=== PATIENT | female | born 1950 | race Caucasian/White ===

== ENCOUNTER 2016-09-13 21:09 | Emergency (ER) | payer BC, OTHER ==
--- NOTE | 2016-09-13 21:26 | EDM.PDOC ---
ED HPI GENERAL MEDICAL PROBLEM - General Chief Complaint: Upper Extremity Injury/Pain Stated Complaint: PAIN LT WRIST Time Seen by Provider: 09/13/16 21:22 - History of Present Illness INITIAL COMMENTS - FREE TEXT/NARRATIVE: HISTORY AND PHYSICAL: History of present illness: The patient is a 70-year-old female with a history of hypothyroidism and who is left-hand dominant and presents with complaints of left wrist pain after she slipped and fell on the arm and the wrist. The patient denies that she passed out or blacked out and has no head neck or back pain and has no proximal forearm elbow or shoulder pain on the left side. All other extremities are without pain. She put ice on the area and took 600 mg of Motrin and 1 g of Tylenol before coming to the ER. Patient states that prior to this fall she was in good state of health and had no systemic complaints. Patient has no neurosensory changes that she states in her hand distally but says that there is discomfort if she tries to move her fingers or the wrist. Review of systems: As per history of present illness and below otherwise all systems reviewed and negative. Past medical history: As per history of present illness and as reviewed below otherwise noncontributory. Surgical history: As per history of present illness and as reviewed below otherwise noncontributory. Social history: No reported history of drug or alcohol abuse. Family history: As per history of present illness and as reviewed below otherwise noncontributory. Physical exam: Gen.: Well-developed thin female who is nontoxic and vital signs have been reviewed by me. HEENT: Atraumatic, normocephalic, negative for conjunctival pallor or scleral icterus, mucous membranes moist, throat clear, neck supple, nontender, trachea midline. There are no midline step-offs or defects of the cervical spine Lungs: Clear to auscultation, breath sounds equal bilaterally, chest nontender. Heart: S1S2, regular rate and rhythm no overt murmurs Abdomen: Soft, nondistended, nontender. NABS Skin: No evidence of any overt rashes or lesions and turgor is normal Genitourinary: Deferred. Rectal: Deferred. Extremities: Atraumatic throughout all the extremities with the exception of the left wrist where there is visible swelling and deformity seen in the dorsal aspect of the wrist. There is no ecchymosis or erythema and there is tenderness in this region. Distally in the hand and fingers there are no bony deformities or tenderness more proximally at the radial head elbow humerus shoulder and clavicle there are no deformities or tenderness. Neurovascular is intact in this extremity. All other extremities have full range of motion without defects. The legs are, negative for cords or calf pain. Neurovascular unremarkable. Neuro: Awake, alert, oriented. Cranial nerves II through XII unremarkable. Cerebellum unremarkable. Motor and sensory unremarkable throughout. Exam nonfocal. Back: There are no midline step-offs tenderness defects of the thoracic or lumbar spine no posterior rib tenderness Diagnostics: X-ray left wrist Therapeutics: The patient defers pain medication as she has taken Motrin and Tylenol prior to arrival. Sling short arm post mold Please note the patient refused pain prescription for home Impression: Distal radial fracture Definitive disposition and diagnosis as appropriate pending reevaluation and review of above. Left Wrist Pain Score (Numeric/FACES): 5 - Related Data Allergies Allergy/AdvReac Type Severity Reaction Status Date / Time No Known Allergies Allergy Verified 09/13/16 21:25 Home Meds: Home Meds . [No Known Home Meds] 09/13/16 [History] Levothyroxine 75 mcg PO DAILY 09/13/16 [History] Review of Systems - Review of Systems Review Of Systems: ROS reveals no pertinent complaints other than HPI. ED EXAM, GENERAL - Physical Exam Exam: See Below (See dictation) Course - Vital Signs Last Recorded V/S: Last Vital Signs Temp 36.9 C 09/13/16 21:20 Pulse 76 09/13/16 21:20 Resp 19 09/13/16 21:20 BP 94/56 L 09/13/16 21:20 Pulse Ox 96 09/13/16 21:20 - Orders/Labs/Meds Orders: Active Orders 24 hr Category Date Time Status Wrist Comp Min 3V Lt [CR] Stat Exams 09/13/16 21:23 Taken DME for Discharge [COMM] Stat Oth 09/13/16 21:54 Ordered Departure - Departure Time of Disposition: 21:59 Disposition: Home, Self-Care 01 Condition: Good Clinical Impression: Fracture of distal end of radius Qualifiers: Encounter type: initial encounter Fracture type: closed Fracture morphology: unspecified fracture morphology Laterality: left Qualified Code(s): S52.502A - Unspecified fracture of the lower end of left radius, initial encounter for closed fracture - Discharge Information Forms: ED Department Discharge Additional Instructions: The following information is given to patients seen in the emergency department who are being discharged to home. This information is to outline your options for follow-up care. We provide all patients seen in our emergency department with a follow-up referral. The need for follow-up, as well as the timing and circumstances, are variable depending upon the specifics of your emergency department visit. If you don't have a primary care physician on staff, we will provide you with a referral. We always advise you to contact your personal physician following an emergency department visit to inform them of the circumstance of the visit and for follow-up with them and/or the need for any referrals to a consulting specialist. The emergency department will also refer you to a specialist when appropriate. This referral assures that you have the opportunity for followup care with a specialist. All of these measure are taken in an effort to provide you with optimal care, which includes your followup. Under all circumstances we always encourage you to contact your private physician who remains a resource for coordinating your care. When calling for followup care, please make the office aware that this follow-up is from your recent emergency room visit. If for any reason you are refused follow-up, please contact the [facility] emergency department at and ask to speak to the emergency department charge nurse. [facility]--Orthopedic clinic [address] [id number] Please leave splint that was placed in the ED on until you're followed up by an orthopedic surgeon for casting. Ice and elevate the area. Please use over-the- counter pain medications. Please call our orthopedics department on Friday to be seen for proper casting and return to ER as needed and as discussed. - My Orders Last 24 Hours: My Active Orders 09/13/16 21:23 Wrist Comp Min 3V Lt [CR] Stat 09/13/16 21:54 DME for Discharge [COMM] Stat - Assessment/Plan Last 24 Hours: My Active Orders 09/13/16 21:23 Wrist Comp Min 3V Lt [CR] Stat 09/13/16 21:54 DME for Discharge [COMM] Stat
[2016-09-13 22:21] VITALS: BP 113/58
--- NOTE | 2016-09-16 10:03 | CR ---
EXAM DATE: 09/13/16 PATIENT'S AGE: 65 Patient: MARYBETH BROWNING Facility: [place], [place] Site . Site : [id number] Study: XRay Extremity Left WRIST [id number]/[id number] 9:38:56 PM Ordering Physician: Angelica Thomas Final Report: Indication: Trauma. Fall today. Pain left wrist. Technique: Left wrist three views. Comparison: None. Findings: There is a comminuted impacted intra-articular fracture of the distal radius with dorsal angulation of the distal fracture fragment. No additional acute osseous abnormality. Soft tissue swelling about the wrist. No radiopaque foreign body. Impression: Comminuted, impacted, intra-articular and dorsally angulated fracture of the distal radius. Dictated by Chetan Hart MD @ 09/13/2016 9:52:33 PM Dictated by: Chetan Hart MD @ 09/13/2016 21:53:09 (Electronic Signature) Report Signed by Proxy. DENICE
== END 2016-09-13 22:22 | disposition home or self-care (01) ==
LOC: MW.ED 21:09
DX: S52.502A Unspecified fracture of the lower end of left radius, initial encounter for closed fracture (principal); E03.9 Hypothyroidism, unspecified; Z79.899 Other long term (current) drug therapy; W01.0XXA Fall on same level from slipping, tripping and stumbling without subsequent striking against object, initial encounter
CPT/HCPCS: 73110-26-LT; 73110-LT; 99283

== ENCOUNTER 2024-11-21 08:44 | Emergency (ER) | payer MEDICARE, OTHER ==
[2024-11-21] MEDS ORDERED: Sodium Chloride 0.9% 2.5 ML Syringe FLUSH PRN (08:58)
[2024-11-21] MEDS ORDERED: methylPREDNISolone Sodium Succinate 125 MG/2 ML SDV IVPUSH ONE (08:58)
[2024-11-21] MEDS ORDERED: Sodium Chloride 0.9% 10 ML Syringe FLUSH PRN (08:58)
[2024-11-21 09:31] LABS: BASOPHILS ABSOLUTE AUTO 0.02 K/uL (0.00-0.20); BASOPHILS PERCENT AUTO 0.4 % (0.0-1.0); EOSINOPHILS ABSOLUTE AUTO 0.05 K/uL (0.00-0.45); EOSINOPHILS PERCENT AUTO 1.1 % (0.0-6.0); IMMATURE GRAN ABSOLUTE AUTO 0.01 K/uL (0.00-0.05); IMMATURE GRAN PERCENT AUTO 0.2 % (0.0-0.4); LYMPHOCYTES ABSOLUTE AUTO 1.10 K/uL (1.00-4.80); LYMPHOCYTES PERCENT AUTO 24.6 % (24.0-44.0); MEAN PLATELET VOLUME 10.7 fL (9.4-12.3); MONOCYTES ABSOLUTE AUTO 0.36 K/uL (0.00-0.80); MONOCYTES PERCENT AUTO 8.0 % (0.0-8.0); NEUTROPHILS ABSOLUTE AUTO 2.94 K/uL (1.80-7.70); NEUTROPHILS PERCENT AUTO 65.7 % (41.0-71.0); NRBC ABSOLUTE 0.00 K/uL (0.00-0.02); NRBC PERCENT 0.0 /100WBC (0.0-0.2); PLATELET COUNT,PLT 179 K/uL (150-400); RED BLOOD CELL COUNT 4.64 M/uL (4.10-5.30); WHITE BLOOD CELL COUNT,WBC 4.48 K/uL (3.9-11.3)
[2024-11-21 09:51] LABS: A/G RATIO 1.2 (0.9-1.6); ALANINE AMINOTRANSFERASE,ALT 26.0 IU/L (14-63); ASPARTATE AMNIOTRANSFERASE,AST 14.0 IU/L (15-37); BILIRUBIN TOTAL 0.4 mg/dL (0.2-1.0); BLOOD UREA NITROGEN,BUN 17.0 mg/dL (7.0-18.0); CARBON DIOXIDE,CO2 26.9 mmol/L (21.0-32.0); CHLORIDE,CL 102.0 mmol/L (98-107); CREATININE 0.8 mg/dL (0.6-1.0); EST CRCL DRUG DOSING (CG) 51.81 mL/min; ESTIMATED GFR 78.0 mL/min (>60); GLUCOSE RANDOM 91.0 mg/dL (74-106); POTASSIUM,K 4.4 mmol/L (3.5-5.1); PROTEIN TOTAL,TP 7.2 g/dL (6.4-8.2); SODIUM,NA 139.0 mmol/L (136-145)
[2024-11-21] MEDS: methylPREDNISolone Sodium Succinate 40 MG/1 ML SDV IM ONE (10:10)
[2024-11-21 10:27] VITALS: BP 107/66; PULSE 58
== END 2024-11-21 10:27 | disposition home or self-care (01) ==
LOC: MW.ED 08:44
DX: T63.441A Toxic effect of venom of bees, accidental (unintentional), initial encounter (principal); E78.00 Pure hypercholesterolemia, unspecified; E03.9 Hypothyroidism, unspecified; Z79.890 Hormone replacement therapy; Z79.899 Other long term (current) drug therapy
CPT/HCPCS: 36415; 80053; 85025; 85652; 86140; 96372; 99283; J2919